=== PATIENT | female | born 1965 | race Caucasian/White ===

== ENCOUNTER → 2020-03-18 | Outpatient (CLI) | payer BC ==
[~2020-03-18] MED LIST: ACYC400T PO; ATOR40TA PO; CYCL10TA2 PO; FLUO10CA13 PO; HYDR-2765 PO; LEVO25TA4 PO; NABU750T7 PO; RABE20TA18 PO
--- NOTE | 2020-03-19 16:39 | RAD ---
DATE: 03/18/2020 8:30 AM EXAM: MAMMO DAWNA SCREENING BILATERAL HISTORY: Screening COMPARISON: 03/20/2019 Bilateral CC and MLO views of the breasts were performed. Implant displaced CC and MLO views were also obtained. Bilateral breast tomosynthesis was performed in implant displaced CC and MLO projections. FINDINGS: Breast Density: SCATTERED The breast parenchyma shows scattered fibroglandular densities. Breast parenchyma level B Redemonstrated are bilateral subpectoral saline implants. No suspicious masses, microcalcifications or architectural distortion is present to suggest malignancy in either breast. The visualized axillae are unremarkable. IMPRESSION: No mammographic evidence of malignancy. BI-RADS CATEGORY: 1 NEGATIVE RECOMMENDED FOLLOW-UP: 12M 12 MONTH FOLLOW-UP Annual screening mammography is recommended, unless clinically indicated sooner based on symptoms or change in physical exam. PQRS compliance statement: Patient information was entered into a reminder system with a target due date for the next mammogram. Mammography is a sensitive method for finding small breast cancers, but it does not detect them all and is not a substitute for careful clinical examination. A negative mammogram does not negate a clinically suspicious finding and should not result in delay in biopsying a clinically suspicious abnormality. "Our facility is accredited by the [employer] Mammography Program."
== END ==
LOC: MAMMO 08:18
PROVIDERS: ATTEND Family Medicine
DX: Z12.31 Encounter for screening mammogram for malignant neoplasm of breast (principal)
CPT/HCPCS: 77063; 77067